=== PATIENT | male | born 1980 | race American Indian/Alaskan Native ===

== ENCOUNTER 2017-04-17 05:42 | Emergency (ER) | payer BC ==
[2017-04-17 05:55] VITALS: BMI 30.1
[2017-04-17 05:58] VITALS: RESP 16
--- NOTE | 2017-04-17 05:58 | ED PDOC ---
HPI: Psych/Substance Abuse Time Seen by Provider: 04/17/17 05:54 Chief Complaint (Provider): etoh History Per: Patient, EMS Additional Complaint(s): 37-year-old male presents to emergency department for alcohol intoxication. Patient was found sleeping in his car. Police were concerned about his safety so they broke car window and brought patient here. Patient arrives per ambulance stating he feels fine, has no complaints at this time. He denies any trauma or injury. Past Medical History Reviewed: Historical Data, Nursing Documentation, Vital Signs - Medical History PMH: No Chronic Diseases - Family History Family History: States: No Known Family Hx - Living Arrangements Living Arrangements: With Friends/Others - Social History Alcohol: Social - Allergies Allergies/Adverse Reactions: Allergies Allergy/AdvReac Type Severity Reaction Status Date / Time No Known Allergies Allergy Verified 04/17/17 05:55 Review of Systems ROS Statement: Except As Marked, All Systems Reviewed And Found Negative Psych: Positive for: Other (etoh) Physical Exam - Reviewed Nursing Documentation Reviewed: Yes Vital Signs Reviewed: Yes - Physical Exam Appears: Positive for: Well, Non-toxic, No Acute Distress Skin: Negative for: Rash Eye Exam: Positive for: Normal appearance Cardiovascular/Chest: Positive for: Regular Rate, Rhythm Respiratory: Positive for: Normal Breath Sounds Neurologic/Psych: Positive for: Alert, Oriented, Gait (steady) - ECG O2 Sat by Pulse Oximetry: 100 Pulse Ox Interpretation: Normal Medical Decision Making Medical Decision Makin-year-old arrives via ambulance for evaluation. Patient is awake and alert upon arrival, has steady gait, stable for discharge. Disposition - Clinical Impression Clinical Impression: Alcohol intoxication - Patient ED Disposition Is Patient to be Admitted: No Counseled Patient/Family Regarding: Need For Followup - Disposition Referrals: [facility] [place] [Outside] Disposition: Routine/Home Disposition Time: 05:55 Condition: STABLE Instructions: Alcohol Use - When Is Drinking a Problem?
[2017-04-17 06:59] VITALS: BP 122/78; PULSE 86; TEMP 98.3; O2SAT 98
== END 2017-04-17 06:30 | disposition home or self-care (01) ==
LOC: H.ER 05:42
DX: F10.129 Alcohol abuse with intoxication, unspecified (principal)